=== PATIENT | female | born 2005 | race Caucasian/White ===

== ENCOUNTER 2024-11-23 18:52 | Emergency (ER) | payer OTHER ==
[~2024-11-23] VITALS: Ht 152.4 cm; Wt 66.8 kg
[2024-11-23 19:44] VITALS: BP 108/69; PULSE 89; RESP 18; TEMP 98.6; O2SAT 100
[2024-11-23] MEDS ORDERED: ACETAMINOPHEN 500 MG TABLET PO ONE (22:45)
[2024-11-23] MEDS ORDERED: BACITRACIN 0.9 GM PACKET OINTMENT TP ONE (22:45)
== END 2024-11-24 01:31 | disposition home or self-care (01) ==
LOC: EMS 18:52
DX: S00.03XA Contusion of scalp, initial encounter (principal); Y04.8XXA Assault by other bodily force, initial encounter; Y93.89 Activity, other specified; Y92.89 Other specified places as the place of occurrence of the external cause; Y99.8 Other external cause status
CPT/HCPCS: 70450; 70486; 71250; 72040; 72125; 99284